=== PATIENT | male | born 1995 | race Caucasian/White ===

== ENCOUNTER 2021-03-19 22:55 | Emergency (ER) | payer BC, OTHER ==
[~2021-03-19 22:55] MED LIST: NORCO 5-325 TA1 EACH PO
== END 2021-03-20 01:36 | disposition left against medical advice (07) ==
LOC: ER1 22:55
DX: Z53.21 Procedure and treatment not carried out due to patient leaving prior to being seen by health care provider (principal)

== ENCOUNTER 2021-11-08 11:29 | Emergency (ER) | payer OTHER ==
[2021-11-08] MEDS ORDERED: IBUPROFEN600 MG PO (14:07)
== END 2021-11-08 14:29 | disposition home or self-care (01) ==
LOC: ER1 11:29
DX: S01.83XA Puncture wound without foreign body of other part of head, initial encounter (principal); F17.210 Nicotine dependence, cigarettes, uncomplicated; W22.8XXA Striking against or struck by other objects, initial encounter; Y92.009 Unspecified place in unspecified non-institutional (private) residence as the place of occurrence of the external cause
CPT/HCPCS: 70450; 70486; 72125; 99284